=== PATIENT | male | born 1965 | race Caucasian/White ===

== ENCOUNTER 2016-09-06 22:25 | Emergency (ER) | payer OTHER ==
--- NOTE | 2016-09-06 23:29 | DIAGNOSTIC IMAGING REPORT ---
PROCEDURE: XR CHEST 1 VIEW INDICATION: Altered status. TECHNIQUE: Portable AP view (2313 hours) COMPARISON: None. FINDINGS: Allowing for suboptimal inspiration and overlying wires and electrodes, lungs are clear. Heart and mediastinum are normal. Thorax is normal. IMPRESSION: 1. Negative chest.
--- NOTE | 2016-09-07 03:05 | ED ORDER SUMMARY ---
..... Patient: DEEDEE STEVENSON OrderSheet [facility] VisitID: [id number] [place] [address] 51y, M Registration Date/Time: 09/06/2016 ORDER SHEET Weight: 103.4 kg (stated) Allergies: Penicillins GENERAL ORDERS: POC Glucose (22:39 09/06/2016 Debby Rosales) (Ack 22:42 Reshma) (22:55 CBradburn R.N.) Chest 1V Urgent (22:51 09/06/2016 Debby Rosales) (Ack 23:04 Reshma) (23:16 Jose) Lvn (Continuous) (altered) (22:51 09/06/2016 Debby Rosales) (23:02 Reshma) CBC w Diff Urgent (22:53 09/06/2016 Debby Rosales) (Ack 23:04 Reshma) (23:11 JQuivey R.N.) (23:11 CBradburn R.N.) CMP Urgent (22:53 09/06/2016 Debby Rosales) (Ack 23:04 Reshma) (23:11 JQuivey R.N.) (23:11 CBradburn R.N.) UA-Culture if indicated Urgent (22:53 09/06/2016 Debby Rosales) (Ack 23:04 Reshma) (0:43 CBradburn R.N.) PT with INR Urgent (22:53 09/06/2016 Debby Rosales) (Ack 23:04 Reshma) (23:11 JQuivey R.N.) (23:11 CBradburn R.N.) Urine Drug Screen Urgent (22:53 09/06/2016 Debby Rosales) (Ack 23:04 Reshma) (0:43 CBradburn R.N.) Troponin-I Urgent (22:53 09/06/2016 Debby Rosales) (Ack 23:04 Reshma) (23:11 JQuivey R.N.) (23:11 CBradburn R.N.) Ammonia Level Urgent (22:53 09/06/2016 Debby Rosales) (Ack 23:04 Reshma) (23:11 CBradburn R.N.) TSH Urgent (22:53 09/06/2016 Debby Rosales) (Ack 23:04 Reshma) (23:11 JQuivey R.N.) (23:11 CBradburn R.N.) Salicylate Level Urgent (22:53 09/06/2016 Debby Rosales) (Ack 23:04 Reshma) (23:11 JQuivey R.N.) Acetaminophen Level Urgent (22:53 09/06/2016 Debby Rosales) (Ack 23:04 Reshma) (23:11 JQuivey R.N.) Pulse oximeter (22:53 09/06/2016 Debby Rosales) (Ack 23:04 Reshma) (23:11 JQuivey R.N.) (23:11 CBradburn R.N.) EKG - ER Stat (22:53 09/06/2016 Debby Rosales) (23:01 Reshma) Ethyl Alcohol Urgent (22:53 09/06/2016 Debby Rosales) (Ack 23:04 Reshma) (23:11 JQuivey R.N.) CO2 Monitoring (22:53 09/06/2016 Debby Rosales) (Ack 23:04 Reshma) (23:21 CBradburn R.N.) Hepatitis Evaluation VII Urgent (23:43 09/06/2016 Debby Rosales) (Ack 23:48 Reshma) (2:52 CBradburn R.N.) US Abdomen Limited (No) Urgent (23:43 09/06/2016 Debby Rosales) (Ack 23:48 Reshma) (1:07 CBradburn R.N.) MEDICATION ORDERS: IV FLUIDS: IV NS : initial bolus 1000 mL (1000 mL/hr), then none - for X1 (NOW) (22:51 09/06/2016 Debby Rosales) (23:11 CBradburn R.N.) Narcan IV 0.1 mg (now. may repeat for max of 0.4 mg as needed for lethargy. ) (22:52 09/06/2016 Debby Rosales) (23:17 Cristobal Christianson) ORDER SHEET NOTES: [Electronically signed by Soraya Augustin R.N. (03:23 09/07/2016)] [Electronically signed by Jermaine Rogers Dr. (09:42 09/11/2016)] [Electronically locked/signed by Soraya Augustin R.N. (03:09/07/2016)]
--- NOTE | 2016-09-07 03:05 | ED ORDER SUMMARY ---
..... Patient: DEEDEE STEVENSON OrderSheet [facility] VisitID: [id number] [place] [address] 51y, M Registration Date/Time: 09/06/2016 ORDER SHEET Weight: 103.4 kg (stated) Allergies: Penicillins GENERAL ORDERS: POC Glucose (22:39 09/06/2016 Debby Rosales) (Ack 22:42 Reshma) (22:55 CBradburn R.N.) Chest 1V Urgent (22:51 09/06/2016 Debby Rosales) (Ack 23:04 Reshma) (23:16 Jose) Beater Tender (Continuous) (altered) (22:51 09/06/2016 Debby Rosales) (23:02 Reshma) CBC w Diff Urgent (22:53 09/06/2016 Debby Rosales) (Ack 23:04 Reshma) (23:11 JQuivey R.N.) (23:11 CBradburn R.N.) CMP Urgent (22:53 09/06/2016 Debby Rosales) (Ack 23:04 Reshma) (23:11 JQuivey R.N.) (23:11 CBradburn R.N.) UA-Culture if indicated Urgent (22:53 09/06/2016 Debby Rosales) (Ack 23:04 Reshma) (0:43 CBradburn R.N.) PT with INR Urgent (22:53 09/06/2016 Debby Rosales) (Ack 23:04 Reshma) (23:11 JQuivey R.N.) (23:11 CBradburn R.N.) Urine Drug Screen Urgent (22:53 09/06/2016 Debby Rosales) (Ack 23:04 Reshma) (0:43 CBradburn R.N.) Troponin-I Urgent (22:53 09/06/2016 Debby Rosales) (Ack 23:04 Reshma) (23:11 JQuivey R.N.) (23:11 CBradburn R.N.) Ammonia Level Urgent (22:53 09/06/2016 Debby Rosales) (Ack 23:04 Reshma) (23:11 CBradburn R.N.) TSH Urgent (22:53 09/06/2016 Debby Rosales) (Ack 23:04 Reshma) (23:11 JQuivey R.N.) (23:11 CBradburn R.N.) Salicylate Level Urgent (22:53 09/06/2016 Debby Rosales) (Ack 23:04 Reshma) (23:11 JQuivey R.N.) Acetaminophen Level Urgent (22:53 09/06/2016 Debby Rosales) (Ack 23:04 Reshma) (23:11 JQuivey R.N.) Pulse oximeter (22:53 09/06/2016 Debby Rosales) (Ack 23:04 Reshma) (23:11 JQuivey R.N.) (23:11 CBradburn R.N.) EKG - ER Stat (22:53 09/06/2016 Debby Rosales) (23:01 Reshma) Ethyl Alcohol Urgent (22:53 09/06/2016 Debby Rosales) (Ack 23:04 Reshma) (23:11 JQuivey R.N.) CO2 Monitoring (22:53 09/06/2016 Debby Rosales) (Ack 23:04 Reshma) (23:21 CBradburn R.N.) Hepatitis Evaluation VII Urgent (23:43 09/06/2016 Debby Rosales) (Ack 23:48 Reshma) (2:52 CBradburn R.N.) US Abdomen Limited (No) Urgent (23:43 09/06/2016 Debby Rosales) (Ack 23:48 Reshma) (1:07 CBradburn R.N.) MEDICATION ORDERS: IV FLUIDS: IV NS : initial bolus 1000 mL (1000 mL/hr), then none - for X1 (NOW) (22:51 09/06/2016 Debby Rosales) (23:11 CBradburn R.N.) Narcan IV 0.1 mg (now. may repeat for max of 0.4 mg as needed for lethargy. ) (22:52 09/06/2016 Debby Rosales) (23:17 Cristobal Christianson) ORDER SHEET NOTES: [Electronically signed by Soraya Augustin R.N. (03:23 09/07/2016)] [Electronically signed by Jermaine Rogers Dr. (09:42 09/11/2016)] [Electronically locked/signed by Soraya Augustin R.N. (03:09/07/2016)]
--- NOTE | 2016-09-07 03:05 | ED CLINICAL REPORT ---
Clinical Report - Physicians/Mid Levels [facility] [address] [place] [address] 09/06/2016 22:29 Patient: DEEDEE STEVENSON Time Seen: 2238. Arrived- By private vehicle. Historian- patient and friend. HISTORY OF PRESENT ILLNESS Chief Complaint: DECREASED MENTAL STATUS. This started today and is still present (unchanged). It was abrupt in onset and has been constant but is not gone now. Patient was last known well (yesterday). The patient is described as having decreased responsiveness. (patient with history of diabetes and complex past medical history including chronic pain.). No weakness or numbness. Usually is alert and oriented X3 and usually has normal mobility. Similar symptoms previously: Many times. Recent medical care: Not recently seen/assessed. REVIEW OF SYSTEMS No chest pain or difficulty breathing. All systems otherwise negative, except as recorded above. PAST HISTORY See nurses notes. Medications: Promethazine HCl Oral (Tablet 25 mg) 1 tablet, 4x a day as needed. MetFORMIN HCl Oral (Tablet 1000 mg) 1 tablet, 2x a day. Gemfibrozil Oral (Tablet 600 mg) 1 tablet, 2x a day. Methadone HCl Oral (Tablet 10 mg) 2 tablets, TID. ALPRAZolam Oral (Tablet 1 mg) 1 tablet, 2x a day as needed. HYDROmorphone HCl Oral (Tablet 4 mg) 2 tablets, 3x a day as needed. Glipizide Oral (Tablet 10 mg) 1 tablet, 2x a day. Cyclobenzaprine HCl Oral (Tablet 10 mg) 1 tablet, 3x a day as needed. Allergies: Penicillins. SOCIAL HISTORY Smoker- current status unknown. Alcohol use. No drug use. Recent travel- [id number] an out of state resident. PHYSICAL EXAM Appearance: No acute distress. ( sleepy). (nontoxic). Head: Head atraumatic. Eyes: Pupils equal, round and reactive to light. Pupillary exam: Right pupil 2mm and reactive to light directly and consensually and with accommodation. Left pupil: 2mm, round and reactive to light directly and consensually and with accommodation. ENT: Normal ENT inspection. Airway intact. Moist mucous membranes. Pharynx normal. Neck: Normal inspection. Neck supple. No meningeal signs. CVS: Normal heart rate and rhythm. Heart sounds normal. Pulses normal. Respiratory: No respiratory distress. Breath sounds normal. (bradypnea. respiratory rate at about 8 breaths per minute). Abdomen: Soft and nontender. No organomegaly. Back: Normal inspection. Skin: Skin warm and dry. Normal skin color. No rash. Normal skin turgor. Extremities: Extremities exhibit normal ROM. No lower extremity edema. Neuro: Oriented X 3. Cranial nerves normal (as tested). No cerebellar findings. No motor deficit. No sensory deficit. LABS, X-RAYS, AND EKG Laboratory Tests: UA-Culture if indicated: (GEORGINA: 09/07/2016 00:25) ( [facility] 09/07/2016 00:52) Final results Test Result Flag Units (Reference) URINE COLOR YELLOW URINE APPEARANCE CLEAR URINE GLUCOSE NEGATIVE (NEGATIVE) URINE BILIRUBIN 1+ (NEGATIVE) URINE KETONE NEGATIVE (NEGATIVE) URINE SPECIFIC GRAVITY >= 1.030 (1.010-1.030) URINE PH 6.0 (5.0-8.0) URINE PROTEIN TRACE (NEGATIVE) URINE UROBILINOGEN 0.2 EU/dL (0.2-1.0) URINE NITRITE NEGATIVE (NEGATIVE) URINE BLOOD NEGATIVE (NEGATIVE) URINE LEUK ESTERASE NEGATIVE (NEGATIVE) URINE RBC 0-1 rbc/hpf (0-1) URINE WBC 0-1 wbc/hpf (0-1) URINE EPITHELIAL CELLS 0-1 EPI/hpf (0-5) URINE BACTERIA TRACE (<1+) (NONE SEEN) URINE COMMENT CULT NOT INDICATED 5-10 HYALINE CASTS PER HPF, FEW TRICHOMONASURINE CULTURES ARE SET-UP BASED ON THE FOLLOWING CRITERIA:POSITIVE NITRITEPOSITIVE LEUKOCYTE ESTERASEGREATER THAN 10 WHITE BLOOD CELLSMODERATE (2+) OR GREATER BACTERIA [id number]: (GEORGINA: 09/07/2016 02:50) ( [facility] 09/08/2016 06:09) Final results Test Result Flag Units (Reference) HEP A AB TOTAL Positive H (Negative) HBSAG SCREEN Negative (Negative) HEP B CORE AB TOT Negative (Negative) HEP B SURFACE AB Non Reactive (.) Non Reactive: Inconsistent with immunity,less than 10 mIU/mLReactive: Consistent with immunity,greater than 9.9 mIU/mL HCV ANTIBODY <0.1 (0.0-0.9) INFCE Result Units: s/co ratioNegative: < 0.8Indeterminate: 0.8 - 0.9Positive: > 0.9The CDC recommends that a positive HCV antibody resultbe followed up with a HCV Nucleic Acid Amplificationtest ([id number]).Performed at: - [facility] [id number] Director: Lisandro Gardiner MD, Phone: [phone] Urine Drug Screen: (GEORGINA: 09/07/2016 00:25) ( MsgRcvd 09/07/2016 00:54) Final results Test Result Flag Units (Reference) AMPHETAMINE/METHAMPHETAMINE NEGATIVE (NEGATIVE) BARBITURATE NEGATIVE (NEGATIVE) BENZODIAZEPINE POSITIVE H (NEGATIVE) CANNABINOID POSITIVE H (NEGATIVE) COCAINE NEGATIVE (NEGATIVE) ECSTASY NEGATIVE (NEGATIVE) METHADONE POSITIVE H (NEGATIVE) OPIATE POSITIVE H (NEGATIVE) The urine drug screen is a qualitative screening test fordrug overdose and abuse. All screen results should beconsidered as presumptive.Drugs screened for are as follows:BenzodiazepinesCocaineAmphetamines/MetamphetaminesTHC (Tetrahydrocannabinol)OpiatesBarbituratesEcstasyMethadonePositive results are unconfirmed. For confirmation, notifythe lab for the specimen to be sent to the reference lab.All confirmations must be performed by a differentmethodology.The ingestion of natural herbal and plant productscontaining Ephedra/Ephedra metabolites can produce in urineone or more substances capable of cross reacting withamphetamine/methamphetamine immunoassays. These testsprovide a preliminary result only. A more specificalternative chemical method must be used to obtain aconfirmed analytical result. CBC w Diff: (GEORGINA: 09/06/2016 23:05) ( MsgRcvd 09/06/2016 23:20) Final results Test Result Flag Units (Reference) WHITE BLOOD COUNT 11.0 K/uL (4.5-11.5) RED BLOOD COUNT 5.76 M/uL (4.50-5.90) HEMOGLOBIN 16.4 gm/dL (13.5-17.5) HEMATOCRIT 50.1 % (41.0-53.0) MEAN CELL VOLUME 87 fL (80-100) MEAN CORPUSCULAR HGB 29 pg (26-34) MEAN CORPUSCULAR HGB CONC 33 g/dL (31-37) RED CELL DISTRIBUTION WIDTH 14.2 % (11.6-14.8) PLATELET COUNT 168 K/uL (150-400) LYMPH % 26.6 % (25-40) MONO % 6.2 % (3-14) GRANULOCYTE % 67.2 PT with INR: (GEORGINA: 09/06/2016 23:05) ( [facility] 09/06/2016 23:21) Final results Test Result Flag Units (Reference) INR 0.9 (0.8-1.2) Low Intensity Therapy: INR 1.5-2.0 PT range 18.5-23.1Mod.Intensity Therapy: INR 2.0-3.0 PT range 23.1-31.5High Intensity Therapy: INR 2.5-3.5 PT range 27.4-35.5High Intensity Therapy 2: INR 3.0-4.0 PT range 31.5-39.3 Ethyl Alcohol: (GEORGINA: 09/06/2016 23:05) ( [facility] 09/06/2016 23:38) Final results Test Result Flag Units (Reference) ETHYL ALCOHOL <3 L mg/dL (3-10) Ammonia Level: (GEORGINA: 09/06/2016 23:17) ( [facility] 09/06/2016 23:37) Final results Test Result Flag Units (Reference) AMMONIA 39 H umol/L (11-32) Salicylate Level: (GEORGINA: 09/06/2016 23:05) ( [facility] 09/06/2016 23:25) Final results Test Result Flag Units (Reference) SALICYLATE <2.8 L mg/dL (2.8-20) CMP: (GEORGINA: 09/06/2016 23:05) ( MsgRcvd 09/06/2016 23:38) Final results Test Result Flag Units (Reference) GLUCOSE 254 H mg/dL (70-110) BUN 20 H mg/dL (7-18) CREATININE 1.5 H mg/dL (0.6-1.3) Estimated GFR 52.44 mL/min Estimated GFR- >60 mL/min Note: Persistent reduction over 3 months in eGFR<60 mL/min/1.73 m2 defines CKD. Patients with eGFR values>=60 mL/min/1.73 m2 may also have CKD if evidence ofpersistent proteinuria. Additional information may be foundat www.kidney.org. SODIUM 135 L mmol/L (136-145) POTASSIUM 4.1 mmol/L (3.5-5.1) CHLORIDE 97 L mmol/L (98-107) CARBON DIOXIDE 25 mmol/L (21-32) CALCIUM 10.2 H mg/dL (8.5-10.1) TOTAL PROTEIN 9.9 H g/dL (6.4-8.2) ALBUMIN 4.4 g/dL (3.3-5.0) BILIRUBIN, TOTAL 1.8 H mg/dL (0.0-1.0) ALKALINE PHOSPHATASE 188 H U/L (46-116) AST (SGOT) 131 H U/L (15-37) ALT (SGPT) 193 H U/L (12-78) TROPONIN I <0.05 L ng/mL (0.00-1.5) TROPONIN REFERENCE RANGE:<0.1 NEGATIVE0.1-1.5 INDETERMINANT>1.5 POSITIVE ACETAMINOPHEN < 3 L ug/mL (10-30) THYROID STIMULATING HORMONE 0.566 uIU/mL (0.34-3.74) . Pulse Oximetry: 09/07/2016 03:17 O2 saturation: 97%. (FIO2 - room air). Interpretation: normal. PROGRESS AND PROCEDURES Course of Care: the patient is a 51-year-old male with diabetes and chronic pain presenting for a vaginal to mental status. This in the patient's presentation and evaluation, patient could be hypoglycemic. He received glucose has been ordered. Please see glucose does not show any signs of hypoglycemia. Because the patient's chronic pain history, would be concern for opoid overdose. Patient is on methadone as well as other opioids. Patient is also on benzodiazepines. Would be concern for oversedation. Because of the patient's history, we'll have a trial of Narcan. We'll use 0.1 mg of Narcan. We'll also order other toxicologic workups for any metabolic derange or other causes for his altered mental Status. patient improved significantly with his mentation after giving 0.1 of Narcan. Patient become significantly more alert and back to baseline. Because of the patient's return to baseline with the Narcan, suspect opiate overdose. Patient will need to be monitored here in the emergen worsening signs of respiratory depression or altered mental status. The rest of the patient's workup was noted for the findings above. Bcause of the patient's improvement mentation and continued good mentation after the Narcan had worn off, feel patient is stable outpatient candidate. I did serious discussion with the patient in regards to his sedating Medications and serious risk to his safety and health. The patient expressed understanding of my concerns. Had a discussion with patient in regards his workup here in the emergency department including diagnosis, home care, follow-up, and return precautions. All questions have been answered. The patient expressed understanding of these instructions and was agreeable to them. Do not feel patient requires further emergency department workup/evaluation. Do not feel patient is admitted to the hospital. Offered patient to detox resources. Critical care performed (65 minutes). Time is exclusive of separately billable procedures. Time includes: direct patient care, patient reassessment, coordination of patient care, interpretation of data (laboratory data and pulse oximetry), review of patient's medical records, medical consultation and documentation of patient care. Disposition: Discharged. Condition: good. CLINICAL IMPRESSION Accidental overdose with alprazolam and methadone. 09/07/2016 01:00 BP: 114/85. HR: 100. RR: 14. O2 saturation: 92%. End tidal CO2: 28 mmHg. Pain level now: 2/10. Blood pressure normal. Oxygen saturation normal. Mild hyperglycemia INSTRUCTIONS (please reduce the amount of medication you are taking for pain. this is a serious problem, dangerous, and life threatening.). Warnings: GENERAL WARNINGS: Return or contact your physician immediately if your condition worsens or changes unexpectedly, if not improving as expected, or if other problems arise. Specifically return if pain, vomiting, bleeding, breathing difficulty or fever. Your Current Medications: CONTINUE TAKING THE FOLLOWING MEDICATIONS: ALPRAZolam Oral : Tablet 1 mg, 1 tablet 2x a day, prn. Cyclobenzaprine HCl Oral : Tablet 10 mg, 1 tablet 3x a day, prn. Gemfibrozil Oral : Tablet 600 mg, 1 tablet 2x a day. Glipizide Oral : Tablet 10 mg, 1 tablet 2x a day. MetFORMIN HCl Oral : Tablet 1000 mg, 1 tablet 2x a day. Promethazine HCl Oral : Tablet 25 mg, 1 tablet 4x a day, prn. CONTINUE TAKING THE FOLLOWING MEDICATIONS UNTIL YOU CHECK WITH YOUR PHYSICIAN: HYDROmorphone HCl Oral : Tablet 4 mg, 2 tablets 3x a day, prn. Methadone HCl Oral : Tablet 10 mg, 2 tablets TID. Follow-up: Return to the emergency department as needed. Follow up with your doctor. Reason for referral: as soon as you return home. Summary of care provided to patient via paper. Screening today revealed the patient's blood pressure to be in the normal range. The patient should follow up with a primary care provider for blood pressure management. Understanding of the discharge instructions verbalized by patient. (Electronically signed by Jermaine Rogers Dr. 09/11/2016 9:42)
--- NOTE | 2016-09-07 03:05 | ED NURSING NOTES ---
Clinical Report - Nurses [address] [place] [address] 09/06/2016 22:29 Patient: DEEDEE STEVENSON TRIAGE Triage time 22:40. Acuity: LEVEL 2. Chief Complaint: ALTERED MENTAL STATUS and DISORIENTED, TROUBLE CONCENTRATING, DECREASED RESPONSIVENESS and DIABETIC. --22:54 Soraya Augustin R.N. 22:36 09/06/16. BP: 124/85 taken on the left arm, while lying. HR: 130 (regular and tachycardic). RR: 14 (regular and unlabored). O2 saturation: 93% on room air. Temp: 98.2 F (oral). Pain level now: 0/10. --22:54 Soraya Augustin R.N. Weight: 103.4 kg stated. Height/Length: 77 inches Per Patient. BMI: 27.1. --22:48 Soraya Augustin R.N. Medications Cyclobenzaprine HCl Oral (Tablet 10 mg) 1 tablet, 3x a day as needed. --22:57 Soraya Augustin R.N. Glipizide Oral (Tablet 10 mg) 1 tablet, 2x a day. --22:57 Soraya Augustin R.N. HYDROmorphone HCl Oral (Tablet 4 mg) 2 tablets, 3x a day as needed. --22:58 Soraya Augustin R.N. ALPRAZolam Oral (Tablet 1 mg) 1 tablet, 2x a day as needed. --22:58 Soraya Augustin R.N. Methadone HCl Oral (Tablet 10 mg) 2 tablets, TID. --22:59 Soraya Augustin R.N. Gemfibrozil Oral (Tablet 600 mg) 1 tablet, 2x a day. --22:59 Soraya Augustin R.N. MetFORMIN HCl Oral (Tablet 1000 mg) 1 tablet, 2x a day. --22:59 Soraya Augustin R.N. Promethazine HCl Oral (Tablet 25 mg) 1 tablet, 4x a day as needed. --23:00 Soraya Augustin R.N. Allergies Penicillins. --22:49 Soraya Augustin R.N. History Arrived by private vehicle. Historian: patient. Accompanied by friend. Primary physician (none). This started 2 hours ago. ( pt brought in by friend for decreased responsiveness concerned for low blood sugar, pt hx of DM and forgot glucometer). SOCIAL HX: Light tobacco smoker (cigarette)- less than 1/2 a pack per day. No alcohol use or drug use. He has not traveled outside the [place] ABUSE ASSESSMENT: No report of abuse. SELF HARM ASSESSMENT: A self harm assessment was performed. The patient answered "no" to the question "Have you recently felt down, depressed, or hopeless?", "Have you noticed less interest or pleasure in doing things?", "Do you have thoughts of harming or killing yourself?", "Are you here because you tried to hurt yourself?", "Have you ever tried to hurt yourself before today?", "Have you recently had thoughts about harming or killing others?" and "Do you have any dangerous items in your possession?". FALL RISK ASSESSMENT: Fall risk assessment completed. No fall risk identified. NUTRITIONAL RISK ASSESSMENT: The nutritional risk assessment revealed no deficiencies. FUNCTIONAL ASSESSMENT: Functional assessment: no impairments noted. LEARNING NEEDS ASSESSMENT: The learning needs assessment revealed no barriers. SKIN INTEGRITY ASSESSMENT: Skin integrity risk assessment completed. No skin integrity risk identified. --22:54 Soraya Augustin R.N. PROBLEMS: Diabetes Mellitus. --22:50 Soraya Augustin R.N. Pancreatitis. Back Pain. Gastroesophageal Reflux Disease. --23:05 Soraya Augustin R.N. ADDITIONAL SURGERIES: Back Surgery. --23:05 Soraya Augustin R.N. Interventions ID band on patient. --22:54 Soraya Augustin R.N. PHYSICAL ASSESSMENT To room via wheelchair. GENERAL / NEURO / PSYCH: The patient is disoriented to person, place, time and situation. He has had weakness. Patient appears well-nourished and neat and clean. HEENT: Pupils equal, round and reactive to light. RESPIRATORY: Respirations not labored. Breath sounds within normal limits. CVS: Normal sinus rhythm noted. Cardiac rhythm: sinus tachycardia. GI / : Abdomen soft and nontender. Bowel sounds within normal limits. SKIN: Skin is warm. Skin is moderately diaphoretic. Normal skin turgor. --22:55 Soraya Augustin R.N. NURSING PROGRESS NOTES Two patient identifiers checked. Call light placed in reach. Side rails up x 2. Bed placed in lowest position. Brakes of bed on. --22:55 Soraya Augustin R.N. Patient ready for evaluation- chart flagged. --22:55 Soraya Augustin R.N. Finger stick glucose: 247; performed by nurse; result shown to the ED physician. --22:56 Soraya Augustin R.N. 22:45 09/06/16. BP: 105/76 taken on the left arm, while lying. HR: 126 (regular and tachycardic). RR: 18 (regular and unlabored). O2 saturation: 99% on room air. Temp: deferred. Pain level now: 0/10. --23:09 Soraya Augustin R.N. 23:09/06/2016 Site #1 started via IV in the left forearm with an 20g angiocath, with aseptic technique and good blood return; one attempt. Blood drawn: rainbow set. Labeled in the presence of the patient and sent to the lab. Saline lock flushed with 10 mL saline. --23:10 Soraya Augustin R.N. 23:05 09/06/2016 Started bag #1 1000 mL IV Fluids IV NS (Saline); bolus of 1000 mL wide open then over 1 hour(s) via site #1. Allergies verified. IV patency established. IV site checked: no pain, redness, or swelling. IV flushed thoroughly pre- and post-medication administration. --23:11 Soraya Augustin R.N. 23:09/06/2016 Narcan (Naloxone HCl) IVP 0.1 mg given over 1 minute(s) via site #1. Allergies verified and confirmed 5 rights. IV patency established. IV site checked: no pain, redness, or swelling. IV flushed thoroughly pre- and post-medication administration. IVP given by RN. --23:17 Soraya Augustin R.N. ( pt A&Ox3, very agitated wanting to leave, post narcan. MD notified.). --23:18 Soraya Augustin R.N. Reassurance given to the patient and patient's friends. GENERAL / NEURO / PSYCH: Patient appears agitated: hyperactive body language. RESPIRATORY: No respiratory distress. CVS: Cardiac rhythm: sinus tachycardia. --23:19 Soraya Augustin R.N. 23:22 09/06/16. BP: 158/94 taken on the right arm, while lying. HR: 122 (regular and tachycardic). RR: 20. O2 saturation: 98% on room air. Temp: deferred. End tidal CO2: 26 mmHg. Pain level now: 05/21. --23:25 Soraya Augustin R.N. EKG time: (23:03). EKG was performed by a tech and shown to the ED physician. --00:12 Zoila Reid The patient is resting quietly. Overall patient status is the same. ( pt continues to be drowsy, awaken to verbal stimuli. A&Ox2, VSS. no distress noted. will continue to monitor). GENERAL / NEURO / PSYCH: The patient is disoriented to place, time and situation. Patient is calm and cooperative. RESPIRATORY: No respiratory distress. SKIN: Skin is warm. --01:30 Soraya Augustin R.N. 01:00 09/07/16. BP: 114/85. HR: 100. RR: 14. O2 saturation: 92%. Temp: deferred. End tidal CO2: 28 mmHg; with normal waveform via cannula device. Pain level now: 05/21. --01:30 Soraya Augustin R.N. Oxygen administered by nasal cannula at 2 liters. ( pt placed on 2L o2 sats increased to 95%). Two patient identifiers checked. Call light placed in reach. Side rails up x 2. Bed placed in lowest position. Brakes of bed on. --01:31 Soraya Augustin R.N. Patient ID band checked for patient name: patient confirmed. Blood samples drawn by lab per protocol ; labeled in presence of the patient and sent to lab. GENERAL / NEURO / PSYCH: Alert. Oriented X 4. --02:52 Soraya Augustin R.N. DISPOSITION / DISCHARGE 00:44 09/07/2016 IV Fluids IV NS Discontinued: bag #1 completed. Total amount infused: 1000 mL. IV patency established. IV site checked: no pain, redness, or swelling. IV flushed thoroughly. --00:44 Soraya Augustin R.N. 03:17 09/07/2016 Site #1 removed upon discharge. Catheter intact. Manual pressure and bandage applied. --03:20 Soraya Augustin R.N. Condition at departure: improved and stable. No learning barriers present. Discharge instructions provided and reviewed with the patient and family. Reviewed warnings (reduce amount of medication taken). Patient and security professionals verbalized understanding. Written instructions provided in Burkinan. No medication instructions, treatment instructions or referrals given to the patient. The patient was discharged home and accompanied by security professionals. He left the Emergency Department ambulatory and via private vehicle. Pole Classifier driving. --03:23 Soraya Augustin R.N. 03:17 09/07/16. BP: 107/77 taken on the right arm, while lying. HR: 91 (regular and normal rate). RR: 14 (regular and unlabored). O2 saturation: 97% on room air. Temp: deferred. Pain level now: 05/21. --03:23 Soraya Augustin R.N. Departure time: 316. --03:23 Soraya Augustin R.N. Locked/Released at 09/07/2016 3:23 by Soraya Augustin R.N.
--- NOTE | 2016-09-07 03:05 | ED CLINICAL REPORT ---
Clinical Report - Physicians/Mid Levels [facility] [address] [place] [address] 09/06/2016 22:29 Patient: DEEDEE STEVENSON Time Seen: 2238. Arrived- By private vehicle. Historian- patient and friend. HISTORY OF PRESENT ILLNESS Chief Complaint: DECREASED MENTAL STATUS. This started today and is still present (unchanged). It was abrupt in onset and has been constant but is not gone now. Patient was last known well (yesterday). The patient is described as having decreased responsiveness. (patient with history of diabetes and complex past medical history including chronic pain.). No weakness or numbness. Usually is alert and oriented X3 and usually has normal mobility. Similar symptoms previously: Many times. Recent medical care: Not recently seen/assessed. REVIEW OF SYSTEMS No chest pain or difficulty breathing. All systems otherwise negative, except as recorded above. PAST HISTORY See nurses notes. Medications: Promethazine HCl Oral (Tablet 25 mg) 1 tablet, 4x a day as needed. MetFORMIN HCl Oral (Tablet 1000 mg) 1 tablet, 2x a day. Gemfibrozil Oral (Tablet 600 mg) 1 tablet, 2x a day. Methadone HCl Oral (Tablet 10 mg) 2 tablets, TID. ALPRAZolam Oral (Tablet 1 mg) 1 tablet, 2x a day as needed. HYDROmorphone HCl Oral (Tablet 4 mg) 2 tablets, 3x a day as needed. Glipizide Oral (Tablet 10 mg) 1 tablet, 2x a day. Cyclobenzaprine HCl Oral (Tablet 10 mg) 1 tablet, 3x a day as needed. Allergies: Penicillins. SOCIAL HISTORY Smoker- current status unknown. Alcohol use. No drug use. Recent travel- ([id number]). Is an out of state resident. PHYSICAL EXAM Appearance: No acute distress. ( sleepy). (nontoxic). Head: Head atraumatic. Eyes: Pupils equal, round and reactive to light. Pupillary exam: Right pupil 2mm and reactive to light directly and consensually and with accommodation. Left pupil: 2mm, round and reactive to light directly and consensually and with accommodation. ENT: Normal ENT inspection. Airway intact. Moist mucous membranes. Pharynx normal. Neck: Normal inspection. Neck supple. No meningeal signs. CVS: Normal heart rate and rhythm. Heart sounds normal. Pulses normal. Respiratory: No respiratory distress. Breath sounds normal. (bradypnea. respiratory rate at about 8 breaths per minute). Abdomen: Soft and nontender. No organomegaly. Back: Normal inspection. Skin: Skin warm and dry. Normal skin color. No rash. Normal skin turgor. Extremities: Extremities exhibit normal ROM. No lower extremity edema. Neuro: Oriented X 3. Cranial nerves normal (as tested). No cerebellar findings. No motor deficit. No sensory deficit. LABS, X-RAYS, AND EKG Laboratory Tests: UA-Culture if indicated: (GEORGINA: 09/07/2016 00:25) ( [facility] 00:52) Final results Test Result Flag Units (Reference) URINE COLOR YELLOW URINE APPEARANCE CLEAR URINE GLUCOSE NEGATIVE (NEGATIVE) URINE BILIRUBIN 1+ (NEGATIVE) URINE KETONE NEGATIVE (NEGATIVE) URINE SPECIFIC GRAVITY >= 1.030 (1.010-1.030) URINE PH 6.0 (5.0-8.0) URINE PROTEIN TRACE (NEGATIVE) URINE UROBILINOGEN 0.2 EU/dL (0.2-1.0) URINE NITRITE NEGATIVE (NEGATIVE) URINE BLOOD NEGATIVE (NEGATIVE) URINE LEUK ESTERASE NEGATIVE (NEGATIVE) URINE RBC 0-1 rbc/hpf (0-1) URINE WBC 0-1 wbc/hpf (0-1) URINE EPITHELIAL CELLS 0-1 EPI/hpf (0-5) URINE BACTERIA TRACE (<1+) (NONE SEEN) URINE COMMENT CULT NOT INDICATED 5-10 HYALINE CASTS PER HPF, FEW TRICHOMONASURINE CULTURES ARE SET-UP BASED ON THE FOLLOWING CRITERIA:POSITIVE NITRITEPOSITIVE LEUKOCYTE ESTERASEGREATER THAN 10 WHITE BLOOD CELLSMODERATE (2+) OR GREATER BACTERIA [id number]: (GEORGINA: 09/07/2016 02:50) ( [facility] 09/08/2016 06:09) Final results Test Result Flag Units (Reference) HEP A AB TOTAL Positive H (Negative) HBSAG SCREEN Negative (Negative) HEP B CORE AB TOT Negative (Negative) HEP B SURFACE AB Non Reactive (.) Non Reactive: Inconsistent with immunity,less than 10 mIU/mLReactive: Consistent with immunity,greater than 9.9 mIU/mL HCV ANTIBODY <0.1 (0.0-0.9) INFCE Result Units: s/co ratioNegative: < 0.8Indeterminate: 0.8 - 0.9Positive: > 0.9The CDC recommends that a positive HCV antibody resultbe followed up with a HCV Nucleic Acid Amplificationtest ([id number]).Performed at: - [facility] [id number] Director: Lisandro Gardiner MD, Phone: [phone] Urine Drug Screen: (GEORGINA: 09/07/2016 00:25) ( MsgRcvd 09/07/2016 00:54) Final results Test Result Flag Units (Reference) AMPHETAMINE/METHAMPHETAMINE NEGATIVE (NEGATIVE) BARBITURATE NEGATIVE (NEGATIVE) BENZODIAZEPINE POSITIVE H (NEGATIVE) CANNABINOID POSITIVE H (NEGATIVE) COCAINE NEGATIVE (NEGATIVE) ECSTASY NEGATIVE (NEGATIVE) METHADONE POSITIVE H (NEGATIVE) OPIATE POSITIVE H (NEGATIVE) The urine drug screen is a qualitative screening test fordrug overdose and abuse. All screen results should beconsidered as presumptive.Drugs screened for are as follows:BenzodiazepinesCocaineAmphetamines/MetamphetaminesTHC (Tetrahydrocannabinol)OpiatesBarbituratesEcstasyMethadonePositive results are unconfirmed. For confirmation, notifythe lab for the specimen to be sent to the reference lab.All confirmations must be performed by a differentmethodology.The ingestion of natural herbal and plant productscontaining Ephedra/Ephedra metabolites can produce in urineone or more substances capable of cross reacting withamphetamine/methamphetamine immunoassays. These testsprovide a preliminary result only. A more specificalternative chemical method must be used to obtain aconfirmed analytical result. CBC w Diff: (GEORGINA: 09/06/2016 23:05) ( MsgRcvd 09/06/2016 23:20) Final results Test Result Flag Units (Reference) WHITE BLOOD COUNT 11.0 K/uL (4.5-11.5) RED BLOOD COUNT 5.76 M/uL (4.50-5.90) HEMOGLOBIN 16.4 gm/dL (13.5-17.5) HEMATOCRIT 50.1 % (41.0-53.0) MEAN CELL VOLUME 87 fL (80-100) MEAN CORPUSCULAR HGB 29 pg (26-34) MEAN CORPUSCULAR HGB CONC 33 g/dL (31-37) RED CELL DISTRIBUTION WIDTH 14.2 % (11.6-14.8) PLATELET COUNT 168 K/uL (150-400) LYMPH % 26.6 % (25-40) MONO % 6.2 % (3-14) GRANULOCYTE % 67.2 PT with INR: (GEORGINA: 09/06/2016 23:05) ( [facility] 09/06/2016 23:21) Final results Test Result Flag Units (Reference) INR 0.9 (0.8-1.2) Low Intensity Therapy: INR 1.5-2.0 PT range 18.5-23.1Mod.Intensity Therapy: INR 2.0-3.0 PT range 23.1-31.5High Intensity Therapy: INR 2.5-3.5 PT range 27.4-35.5High Intensity Therapy 2: INR 3.0-4.0 PT range 31.5-39.3 Ethyl Alcohol: (GEORGINA: 09/06/2016 23:05) ( [facility] 09/06/2016 23:38) Final results Test Result Flag Units (Reference) ETHYL ALCOHOL <3 L mg/dL (3-10) Ammonia Level: (GEORGINA: 09/06/2016 23:17) ( [facility] 09/06/2016 23:37) Final results Test Result Flag Units (Reference) AMMONIA 39 H umol/L (11-32) Salicylate Level: (GEORGINA: 09/06/2016 23:05) ( [facility] 09/06/2016 23:25) Final results Test Result Flag Units (Reference) SALICYLATE <2.8 L mg/dL (2.8-20) CMP: (GEORGINA: 09/06/2016 23:05) ( MsgRcvd 09/06/2016 23:38) Final results Test Result Flag Units (Reference) GLUCOSE 254 H mg/dL (70-110) BUN 20 H mg/dL (7-18) CREATININE 1.5 H mg/dL (0.6-1.3) Estimated GFR 52.44 mL/min Estimated GFR- >60 mL/min Note: Persistent reduction over 3 months in eGFR<60 mL/min/1.73 m2 defines CKD. Patients with eGFR values>=60 mL/min/1.73 m2 may also have CKD if evidence ofpersistent proteinuria. Additional information may be foundat www.kidney.org. SODIUM 135 L mmol/L (136-145) POTASSIUM 4.1 mmol/L (3.5-5.1) CHLORIDE 97 L mmol/L (98-107) CARBON DIOXIDE 25 mmol/L (21-32) CALCIUM 10.2 H mg/dL (8.5-10.1) TOTAL PROTEIN 9.9 H g/dL (6.4-8.2) ALBUMIN 4.4 g/dL (3.3-5.0) BILIRUBIN, TOTAL 1.8 H mg/dL (0.0-1.0) ALKALINE PHOSPHATASE 188 H U/L (46-116) AST (SGOT) 131 H U/L (15-37) ALT (SGPT) 193 H U/L (12-78) TROPONIN I <0.05 L ng/mL (0.00-1.5) TROPONIN REFERENCE RANGE:<0.1 NEGATIVE0.1-1.5 INDETERMINANT>1.5 POSITIVE ACETAMINOPHEN < 3 L ug/mL (10-30) THYROID STIMULATING HORMONE 0.566 uIU/mL (0.34-3.74) . Pulse Oximetry: 09/07/2016 03:17 O2 saturation: 97%. (FIO2 - room air). Interpretation: normal. PROGRESS AND PROCEDURES Course of Care: the patient is a 51-year-old male with diabetes and chronic pain presenting for a vaginal to mental status. This in the patient's presentation and evaluation, patient could be hypoglycemic. He received glucose has been ordered. Please see glucose does not show any signs of hypoglycemia. Because the patient's chronic pain history, would be concern for opoid overdose. Patient is on methadone as well as other opioids. Patient is also on benzodiazepines. Would be concern for oversedation. Because of the patient's history, we'll have a trial of Narcan. We'll use 0.1 mg of Narcan. We'll also order other toxicologic workups for any metabolic derange or other causes for his altered mental Status. patient improved significantly with his mentation after giving 0.1 of Narcan. Patient become significantly more alert and back to baseline. Because of the patient's return to baseline with the Narcan, suspect opiate overdose. Patient will need to be monitored here in the emergen worsening signs of respiratory depression or altered mental status. The rest of the patient's workup was noted for the findings above. Bcause of the patient's improvement mentation and continued good mentation after the Narcan had worn off, feel patient is stable outpatient candidate. I did serious discussion with the patient in regards to his sedating Medications and serious risk to his safety and health. The patient expressed understanding of my concerns. Had a discussion with patient in regards his workup here in the emergency department including diagnosis, home care, follow-up, and return precautions. All questions have been answered. The patient expressed understanding of these instructions and was agreeable to them. Do not feel patient requires further emergency department workup/evaluation. Do not feel patient is admitted to the hospital. Offered patient to detox resources. Critical care performed (65 minutes). Time is exclusive of separately billable procedures. Time includes: direct patient care, patient reassessment, coordination of patient care, interpretation of data (laboratory data and pulse oximetry), review of patient's medical records, medical consultation and documentation of patient care. Disposition: Discharged. Condition: good. CLINICAL IMPRESSION Accidental overdose with alprazolam and methadone. 09/07/2016 01:00 BP: 114/85. HR: 100. RR: 14. O2 saturation: 92%. End tidal CO2: 28 mmHg. Pain level now: 2/10. Blood pressure normal. Oxygen saturation normal. Mild hyperglycemia INSTRUCTIONS (please reduce the amount of medication you are taking for pain. this is a serious problem, dangerous, and life threatening.). Warnings: GENERAL WARNINGS: Return or contact your physician immediately if your condition worsens or changes unexpectedly, if not improving as expected, or if other problems arise. Specifically return if pain, vomiting, bleeding, breathing difficulty or fever. Your Current Medications: CONTINUE TAKING THE FOLLOWING MEDICATIONS: ALPRAZolam Oral : Tablet 1 mg, 1 tablet 2x a day, prn. Cyclobenzaprine HCl Oral : Tablet 10 mg, 1 tablet 3x a day, prn. Gemfibrozil Oral : Tablet 600 mg, 1 tablet 2x a day. Glipizide Oral : Tablet 10 mg, 1 tablet 2x a day. MetFORMIN HCl Oral : Tablet 1000 mg, 1 tablet 2x a day. Promethazine HCl Oral : Tablet 25 mg, 1 tablet 4x a day, prn. CONTINUE TAKING THE FOLLOWING MEDICATIONS UNTIL YOU CHECK WITH YOUR PHYSICIAN: HYDROmorphone HCl Oral : Tablet 4 mg, 2 tablets 3x a day, prn. Methadone HCl Oral : Tablet 10 mg, 2 tablets TID. Follow-up: Return to the emergency department as needed. Follow up with your doctor. Reason for referral: as soon as you return home. Summary of care provided to patient via paper. Screening today revealed the patient's blood pressure to be in the normal range. The patient should follow up with a primary care provider for blood pressure management. Understanding of the discharge instructions verbalized by patient. (Electronically signed by Jermaine Rogers Dr. 09/11/2016 9:42)
--- NOTE | 2016-09-07 06:36 | DIAGNOSTIC IMAGING REPORT ---
PROCEDURE: US ABDOMEN ULTRASOUND-LIMITED INDICATION: ABNORMAL LFT TECHNIQUE: Wolfe scale and color Doppler sonographic images of the abdomen were obtained. COMPARISON: None. FINDINGS: Limited study secondary to patient's body habitus and lack of patient cooperation. Liver measures 18.7 cm with increased echogenicity. Cholecystectomy. CBD measures 6 mm. Pancreas not well visualized. IVC is patent. Normal hepatopetal flow. Right kidney measures 10.5 cm. IMPRESSION: 1. Hepatic steatosis versus intrinsic liver disease.
--- NOTE | 2016-09-11 09:42 | ED MED RECONCILIATION SUMMARY ---
Patient: DEEDEE STEVENSON Medication Reconciliation Report [facility] VisitID: [id number] [address] [place] [address] 51y, M Registration Date/Time: 09/06/2016 Weight: 103.4 kg Height/Length: 77 in. BMI: 27.1 ALLERGIES: Penicillins The patient's Home Medications are listed below: CONTINUE TAKING THE FOLLOWING MEDICATIONS: ALPRAZolam Oral (1 mg) 1 tablet, 2x a day Cyclobenzaprine HCl Oral (10 mg) 1 tablet, 3x a day Gemfibrozil Oral (600 mg) 1 tablet, 2x a day Glipizide Oral (10 mg) 1 tablet, 2x a day MetFORMIN HCl Oral (1000 mg) 1 tablet, 2x a day Promethazine HCl Oral (25 mg) 1 tablet, 4x a day CONTINUE TAKING THE FOLLOWING MEDICATIONS UNTIL YOU CHECK WITH YOUR PHYSICIAN: HYDROmorphone HCl Oral (4 mg) 2 tablets, 3x a day Methadone HCl Oral (10 mg) 2 tablets, TID The source(s) of the original Home Medication information: Not obtained. The following Medications were given to the patient in the Emergency Department: IV NS IV Fluids bolus 1000 mL wide open, administered: 09/06/2016 11:05:00 PM Narcan [IVP] IVP 0.1 mg, administered: 09/06/2016 11:05:00 PM The following Medications were prescribed to the patient: None.
--- NOTE | 2016-09-11 09:42 | ED DISCHARGE INSTRUCTIONS ---
Patient: DEEDEE STEVENSON General Instructions [facility] VisitID: [id number] [address] [place] [address] 51y, M Registration Date/Time: 09/06/2016 Accidental overdose with alprazolam and methadone. 09/07/2016 01:00 BP: 114/85. HR: 100. RR: 14. O2 saturation: 92%. End tidal CO2: 28 mmHg. Pain level now: 2/10. Blood pressure normal. Oxygen saturation normal. Mild hyperglycemia INSTRUCTIONS (please reduce the amount of medication you are taking for pain. this is a serious problem, dangerous, and life threatening.). Warnings: GENERAL WARNINGS: Return or contact your physician immediately if your condition worsens or changes unexpectedly, if not improving as expected, or if other problems arise. Specifically return if pain, vomiting, bleeding, breathing difficulty or fever. Your Current Medications: CONTINUE TAKING THE FOLLOWING MEDICATIONS: ALPRAZolam Oral : Tablet 1 mg, 1 tablet 2x a day, prn. Cyclobenzaprine HCl Oral : Tablet 10 mg, 1 tablet 3x a day, prn. Gemfibrozil Oral : Tablet 600 mg, 1 tablet 2x a day. Glipizide Oral : Tablet 10 mg, 1 tablet 2x a day. MetFORMIN HCl Oral : Tablet 1000 mg, 1 tablet 2x a day. Promethazine HCl Oral : Tablet 25 mg, 1 tablet 4x a day, prn. CONTINUE TAKING THE FOLLOWING MEDICATIONS UNTIL YOU CHECK WITH YOUR PHYSICIAN: HYDROmorphone HCl Oral : Tablet 4 mg, 2 tablets 3x a day, prn. Methadone HCl Oral : Tablet 10 mg, 2 tablets TID. Follow-up: Return to the emergency department as needed. Follow up with your doctor. Reason for referral: as soon as you return home. Summary of care provided to patient via paper. Screening today revealed the patient's blood pressure to be in the normal range. The patient should follow up with a primary care provider for blood pressure management. Understanding of the discharge instructions verbalized by patient. ADDITIONAL INFORMATION Accidental Ingestion:Non-Toxic [Adult] You have been evaluated and treated for taking too much of a medicine or swallowing a chemical product. There is no sign of toxic effect at this time. It is very unlikely that any new symptoms will appear. As a safeguard, you must be alert for symptoms during the next 24 hours (see below). The exact symptom will depend on what was swallowed. Home Care: If LIQUID CHARCOAL was given to neutralize what was swallowed, it will cause a black color to the stools for 1-2 days. Usually, a laxative (sorbitol) is given with charcoal to speed the removal of any toxins from the intestinal tract. This may cause diarrhea for up to 24 hours. If no laxative was given with charcoal, you may get constipated. If this occurs, you may take an efqx-jkn-vwubmrk laxative such as Dulcolax pills or suppository. Prevention: Keep medicines, pesticides, and other household chemicals in their original containers. Clearly andres all harmful products if a different bottle is used. Follow Up with your doctor if all symptoms do not resolve within 24 hours or if constipation is not relieved by one or two doses of laxatives. Get Prompt Medical Attention if any of the following occur: Excess drowsiness or inability to be awakened Rapid heart beat, shakiness or seizure Fast breathing (over 25 breaths/minute) or slow breathing (less than 8 breaths/minute) Feeling shortness of breath Fever of 100.4F (38C) or higher, or as directed by your healthcare provider Vomiting or diarrhea for more than 24 hours Blood in stools or vomit (black or red color) Chest or abdominal pain Dizziness, weakness or fainting Opiate Overdose You have been treated for an overdose of opiates (such as a prescription pain medicine or heroin).Taking too much opiates is dangerous because they cause breathing to slow and possibly stop.If you stop breathing for more than 2-3 minutes, your heart will stop and you will . If your overdose was severe, you may have received an antidote called Narcan (naloxone). The antidote effect lasts for about 1-2 hours.If the opiate has not left your system by the time the Narcan wears off your symptoms may return (such as drowsiness and slow breathing). If you were addicted and physically dependent on opiates, then Narcan may cause withdrawal symptoms to appear immediately.These may consist of body aches, diarrhea, abdominal cramps, nausea, vomiting, runny nose, sneezing, sweating, yawning, restlessness, irritability, or trembling.These symptoms will go away as the Narcan wears off. Home Care Rest for the next [address] or operate any vehicle or dangerous equipment until all narcotic effects have worn off and you are no longer feeling sleepy or drowsy. If you were previously prescribed narcotic medicines for pain, do not take any more of this medicine for the next 6-8 hours, unless told otherwise. If narcotics or other drugs were swallowed, you may have been given liquid charcoal to neutralize those drugs.The charcoal may cause nausea and vomiting over the next few hours. It will also cause a black color to your stools for the next 1-2 days. Usually, a laxative is given with charcoal to speed the removal of any toxins from the intestinal tract. This may cause diarrhea for up to 24 hours. If no laxative was given, there may be a tendency toward constipation. If this occurs, you may take an lfnv-egp-jvzakbg laxative such as Dulcolax pills or suppository, or Milk of Magnesia. Follow Up with your doctor if all symptoms do not resolve within 24 hours or if constipation is not relieved after two doses of laxatives.If your overdose was related to a drug addiction, seek drug counseling. Consider a drug treatment program to help you break your habit. Return Promptly or contact your doctor if any of the following occur: Excess drowsiness or inability to be awakened Slow breathing under 8 breaths per minute Shortness of breath or cough with colored sputum Fever over 100.4F (38.0C) oral Redness, swelling or tenderness at the heroin injection site Feeling that you might harm yourself or another Diabetes with High Blood Sugar You have been treated for high blood sugar (hyperglycemia). This may be becauseof an infection or other illness;eating too many sweets or starches ; not taking enough insulin. Home care High blood sugar may cause symptoms that you can learn to recognize, such as these: If you feel like your blood sugar may be too high, measure it using a blood or urine test. If it is above your usual range, use the "sliding scale"rRegular insulin dose your doctor gave you to correct this. If no "sliding scale" orders were given, contact your doctor for further advice. If your blood sugar is over 300, and you can't reach your doctor, go to the hospital emergency room. Monitor and write down your blood sugars - and insulin dose, if you take insulin - atleast twice a day. Do this before breakfast and before dinner. Do this for the next 3 to 5 days. Follow-up care Follow up with your health care provderduring the next week to review your blood sugar records. You will find out if you need to adjust your dose of insulin or other medicine for blood sugar. When to seek medical care Get prompt medical attention if either of these occur: High blood sugar.Symptoms are frequent urination, feeling dizzy, thirst, headache, nausea or vomiting, abdominal pain, and drowsiness or loss of consciousness. Low blood sugar. Symptoms are fatigue, headache, shakes, excess sweating, hunger, anxiety, reduced vision, drowsiness, weakness, confusion or loss of consciousness, and seizure. You have been given the following additional information: Overdose, Accidental (Adult) Overdose, Opiate Diabetic Hyperglycemia (Electronically signed by Jermaine Rogers Dr. 09/11/2016 9:42)
--- NOTE | 2016-09-11 09:42 | ED MAR SUMMARY ---
..... Medication Administration Record [facility] [address] [place] [address] Patient: DEEDEE STEVENSON Visit ID: [id number] 51y, M Weight: 103.4 kg Height/Length: 77 in BMI: 27.1 ALLERGIES: Penicillins Start 23:05 09/06/2016 Soraya Augustin R.N., Stop 00:44 09/07/2016 Soraya Augustin R.N. Medication Administered: IV NS (SALINE), Dose: IV Fluids over 1 hour(s), Bolus: 1000 mL wide open, Dispensed: 1000 mL bag, Site: #1 left forearm. Medication Ordered: IV NS : initial bolus 1000 mL (1000 mL/hr), then none - for X1 (NOW). Given 23:05 09/06/2016 Soraya Augustin R.N. Medication Administered: NARCAN [IVP] (NALOXONE HCL), Dose: 0.1 mg IVP over 1 minute(s), Site: #1 left forearm. Medication Ordered: Narcan IV 0.1 mg (now. may repeat for max of 0.4 mg as needed for lethargy. ).
--- NOTE | 2016-09-11 09:42 | ED MAR SUMMARY ---
..... Medication Administration Record [facility] [address] [place] [address] Patient: DEEDEE STEVENSON Visit ID: [id number] 51y, M Weight: 103.4 kg Height/Length: 77 in BMI: 27.1 ALLERGIES: Penicillins Start 23:05 09/06/2016 Soraya Augustin R.N., Stop 00:44 09/07/2016 Soraya Augustin R.N. Medication Administered: IV NS (SALINE), Dose: IV Fluids over 1 hour(s), Bolus: 1000 mL wide open, Dispensed: 1000 mL bag, Site: #1 left forearm. Medication Ordered: IV NS : initial bolus 1000 mL (1000 mL/hr), then none - for X1 (NOW). Given 23:05 09/06/2016 Soraya Augustin R.N. Medication Administered: NARCAN [IVP] (NALOXONE HCL), Dose: 0.1 mg IVP over 1 minute(s), Site: #1 left forearm. Medication Ordered: Narcan IV 0.1 mg (now. may repeat for max of 0.4 mg as needed for lethargy. ).
--- NOTE | 2016-09-11 09:42 | ED MED RECONCILIATION SUMMARY ---
Patient: DEEDEE STEVENSON Medication Reconciliation Report [facility] VisitID: [id number] [address] [place] [address] 51y, M Registration Date/Time: 09/06/2016 Weight: 103.4 kg Height/Length: 77 in. BMI: 27.1 ALLERGIES: Penicillins The patient's Home Medications are listed below: CONTINUE TAKING THE FOLLOWING MEDICATIONS: ALPRAZolam Oral (1 mg) 1 tablet, 2x a day Cyclobenzaprine HCl Oral (10 mg) 1 tablet, 3x a day Gemfibrozil Oral (600 mg) 1 tablet, 2x a day Glipizide Oral (10 mg) 1 tablet, 2x a day MetFORMIN HCl Oral (1000 mg) 1 tablet, 2x a day Promethazine HCl Oral (25 mg) 1 tablet, 4x a day CONTINUE TAKING THE FOLLOWING MEDICATIONS UNTIL YOU CHECK WITH YOUR PHYSICIAN: HYDROmorphone HCl Oral (4 mg) 2 tablets, 3x a day Methadone HCl Oral (10 mg) 2 tablets, TID The source(s) of the original Home Medication information: Not obtained. The following Medications were given to the patient in the Emergency Department: IV NS IV Fluids bolus 1000 mL wide open, administered: 09/06/2016 11:05:00 PM Narcan [IVP] IVP 0.1 mg, administered: 09/06/2016 11:05:00 PM The following Medications were prescribed to the patient: None.
== END 2016-09-07 03:17 | disposition home or self-care (01) ==
LOC: ED SRH 22:25
DX: T42.4X1A Poisoning by benzodiazepines, accidental (unintentional), initial encounter (principal); T40.3X1A Poisoning by methadone, accidental (unintentional), initial encounter; R41.82 Altered mental status, unspecified; E11.65 Type 2 diabetes mellitus with hyperglycemia; K21.9 Gastro-esophageal reflux disease without esophagitis; F17.210 Nicotine dependence, cigarettes, uncomplicated; Z79.84 Long term (current) use of oral hypoglycemic drugs; Z79.899 Other long term (current) drug therapy; Z88.0 Allergy status to penicillin
CPT/HCPCS: 90004; 90073; 90074; 90075; 90077; 90078; 90100; 90616; 91588; 92010; 92760; 92761; 92762; 92763; 92764; 92765; 92766; 92767; 92780; 93140; 94060; 95059; 97000; 99777